=== PATIENT | male | born 1995 | race Caucasian/White ===

== ENCOUNTER 2017-10-06 10:58 | Emergency (ER) | payer SELFPAY ==
--- NOTE | 2017-10-06 11:15 | ED.PDOC ---
History of Present Illness - General Chief Complaint: Eye Problems Stated Complaint: left eye swelling Time Seen by Provider: 10/06/17 11:14 Source: patient Exam Limitations: no limitations - History of Present Illness Initial Comments: August Resendez 22 y/o male seen in ER with left lower lid swelling for 24 hours no history of trauma to eye,denies foreign body sensation no contact lenses,has nasal drainage. Timing/Duration: yesterday EENT Location: eye (L) Prearrival Treatment: no prearrival treatment Worsening Factors: nothing Associated Symptoms: denies symptoms Allergies/Adverse Reactions: Allergies NO KNOWN ALLERGY Allergy (Verified 10/06/17 11:17) Home Medications: Ambulatory Orders Cephalexin 1,000 mg PO BID #30 cap 10/06/17 Review of Systems - Review of Systems Constitutional: States: no symptoms reported EENTM: States: see HPI Respiratory: States: no symptoms reported Cardiology: States: no symptoms reported Gastrointestinal/Abdominal: States: no symptoms reported Musculoskeletal: States: no symptoms reported All other Systems: Reviewed and Negative, No Change from Baseline Past Medical History (General) - Patient Medical History Surgical History: no surgical history Family Medical History - Family History Mother Family History: Unknown Hx Family Hypertension: Yes - multiple family memebers Physical Exam - Physical Exam General Appearance: Alert, Comfortable, No apparent distress Eye Exam: right other - lower lid swelling, bilateral normal Ear Exam: bilateral ear: auricle normal, canal normal, TM normal Nasal Exam: other - nasal congestion Throat Exam: normal mouth inspection, pharynx normal Neck: non-tender, full range of motion Cardiovascular/Respiratory: regular rate, rhythm, normal peripheral pulses Abdominal Exam: non-tender Neurologic: alert, oriented x 3 Skin Exam: normal color, warm/dry Progress - Progress Progress: 10/06/17 11:59 Last Vital Signs Temp 97.9 F 10/06/17 11:08 Pulse 82 10/06/17 11:08 Resp 20 10/06/17 11:08 BP 144/85 10/06/17 11:08 Pulse Ox 96 10/06/17 11:08 Departure - Departure Clinical Impression: Nasal congestion with rhinorrhea Blepharitis of left upper eyelid Qualifiers: Blepharitis type: unspecified type Qualified Code(s): H01.004 - Unspecified blepharitis left upper eyelid Time of Disposition: 12:00 Disposition: Discharge to Home or Self Care Condition: Good Departure Forms: ED Discharge - Pt. Copy, Patient Portal Self Enrollment Instructions: DI for Blepharitis, Blepharitis Prescriptions: Cephalexin 1,000 mg PO BID #30 cap Home Medications: Ambulatory Orders Cephalexin 1,000 mg PO BID #30 cap 10/06/17 Additional Instructions: May use alternate warm and cold compress to left eye for 5 minutes 3 x a day during waking hours only until better;Wash affected area with BABY soap or BABY shampoo am /pm until better ;Continue with gentamicin eye solution 4 x a day for 7 days;Return to emergency room as needed
[2017-10-06] MEDS ORDERED: LACTATED RINGERS 1,000 ML IVS ONE (11:16)
[2017-10-06 11:17] VITALS: TEMP 97.9; O2SAT 96
[2017-10-06 12:16] VITALS: BP 130/73
[2017-10-06] MEDS ORDERED: GENTAMICIN 0.3% OPHTH SOL 1 DROP LEFT_EYE SCH (13:00)
== END 2017-10-06 12:16 | disposition home or self-care (01) ==
LOC: ER 10:58
DX: H01.004 Unspecified blepharitis left upper eyelid (principal)

== ENCOUNTER 2018-06-06 07:39 | Emergency (ER) | payer SELFPAY ==
[2018-06-06 07:55] VITALS: TEMP 96.9
[2018-06-06] MEDS ORDERED: SODIUM CHLORIDE 0.9% (FLUSH) 10 ML SYG IV PRN (08:02)
--- NOTE | 2018-06-06 08:17 | ED.PDOC ---
History of Present Illness - General Chief Complaint: General Stated Complaint: left sided chest pain Time Seen by Provider: 06/06/18 08:01 Source: patient Exam Limitations: no limitations - History of Present Illness Initial Comments: 1 1/2 WEEKS L-SIDED CP. PINPOINT LOCATION, JUST TO L OF STERNUM AT JOINT CONNECTING STERNUM TO RIB (COSTOCHONDRITIS). CONSTANT. AGGRAVATED BY DEEP BREATH. ALLEV BY NOTHING. SHARP. SMOKE 1 PPD. Timing/Duration: 1 week, constant Severity: moderate Improving Factors: nothing Worsening Factors: movement Associated Symptoms: chest pain Allergies/Adverse Reactions: Allergies NO KNOWN ALLERGY Allergy (Verified 10/06/17 11:17) Home Medications: Ambulatory Orders Methylprednisolone [Medrol Dose Jack] 4 mg PO DAILY #1 tab 06/06/18 Review of Systems - Review of Systems Constitutional: States: no symptoms reported EENTM: States: no symptoms reported Respiratory: Denies: short of breath, wheezing Cardiology: States: chest pain. Denies: palpitations Gastrointestinal/Abdominal: States: no symptoms reported Genitourinary: States: no symptoms reported Musculoskeletal: States: no symptoms reported Skin: States: no symptoms reported Neurological: States: no symptoms reported Endocrine: States: no symptoms reported Hematologic/Lymphatic: States: no symptoms reported All other Systems: Reviewed and Negative Past Medical History (General) - Patient Medical History Hx Stroke: No Hx Asthma: No Hx Congestive Heart Failure: No Hx Hypertension: No Hx Diabetes: No Hx MRSA: No Surgical History: no surgical history - Vaccination History Hx Tetanus, Diphtheria Vaccination: Yes Hx Influenza Vaccination: No Hx Pneumococcal Vaccination: No - Social History Hx Tobacco Use: Yes Hx Chewing Tobacco Use: No Hx Alcohol Use: No Hx Substance Use: No Hx Substance Use Treatment: No Hx Depression: No Family Medical History - Family History Mother Family History: Unknown Hx Family Hypertension: Yes - multiple family memebers Physical Exam - Physical Exam General Appearance: Alert, Well Nourished Eye Exam: bilateral normal Ears, Nose, Throat: hearing grossly normal, normal ENT inspection Neck: non-tender, other - NO BRUIT. NO JVD. Respiratory: chest non-tender, lungs clear, normal breath sounds, no respiratory distress, no accessory muscle use Cardiovascular/Chest: normal peripheral pulses, regular rate, rhythm, no edema, no gallop, no JVD, no murmur Peripheral Pulses: radial,right: 2+, radial,left: 2+ Gastrointestinal/Abdominal: normal bowel sounds, non tender, soft Back Exam: normal inspection, no CVA tenderness Extremity: normal range of motion, normal inspection Neurologic: legal aid II-XII nml as tested, no motor/sensory deficits, alert Skin Exam: normal color, warm/dry Lymphatic: no adenopathy Progress - Results/Orders Results/Orders: COAGS NEG. CARDIAC ENZ NEG. ONLY 1 SET NEEDED SINCE 1 1/2 WKS C.P. CXR NEG EKG NSR. CBC - WBC BARELY ELEV AT 11.2. BMP - BUN 21, MILDLY DEHYDRATED. PAIN LOCATED AT JXN OF STERNUM AND RIB, C/W COSTOCHONDRITIS. TX W/ ANTI- INFLAMMATORIES. TOB USE DISORDER - I RECOMMENDED CESSATION AND EXPLAINED THE DAMAGE SMOKING CAUSES. Departure - Departure Clinical Impression: Costochondral chest pain, Tobacco use disorder Disposition: Discharge to Home or Self Care Condition: Good Departure Forms: ED Discharge - Pt. Copy, Patient Portal Self Enrollment Instructions: Costochondritis Diet: resume usual diet Activity: increase activity as tolerated Prescriptions: Methylprednisolone [Medrol Dose Jack] 4 mg PO DAILY #1 tab Home Medications: Ambulatory Orders Methylprednisolone [Medrol Dose Jack] 4 mg PO DAILY #1 tab 06/06/18 Additional Instructions: Please try to decrease smoking because it irritates the lungs and leads to bronchitis, COPD, and lung cancer. Please establish care with a local family doctor for follow-up.
--- NOTE | 2018-06-06 08:33 | RAD ---
EXAM DESCRIPTION: Chest,1 View CLINICAL HISTORY: 23 years Male, CHEST PAIN COMPARISON: None. TECHNIQUE: AP portable chest. FINDINGS: Lungs are clear. No consolidation. Heart normal size. IMPRESSION: Normal. Electronically signed by: Ayan Cline MD 06/06/2018 8:31 AM CDT
[2018-06-06] MEDS ORDERED: methylPREDNISolone SODIUM SUC 125 MG/2 ML VIAL IV ONE (08:38)
[2018-06-06] MEDS ORDERED: KETOROLAC TROMETHAMINE INJ 30 MG/ML VIAL IV ONE (08:39)
[2018-06-06 09:02] VITALS: BP 134/79; O2SAT 99
== END 2018-06-06 09:02 | disposition home or self-care (01) ==
LOC: ER 07:39
DX: M94.0 Chondrocostal junction syndrome [Tietze] (principal); F17.210 Nicotine dependence, cigarettes, uncomplicated
CPT/HCPCS: 36415; 71045; 80048; 82550; 82553; 84484; 85025; 85610; 85730; 93005; J1885; J2930

== ENCOUNTER 2018-12-06 02:10 | Emergency (ER) | payer SELFPAY ==
[2018-12-06 02:26] VITALS: O2SAT 97
[2018-12-06] MEDS ORDERED: IBUPROFEN 200 MG TAB PO ONE (02:34)
[2018-12-06] MEDS ORDERED: BENZONATATE PERLES 100 MG CAP PO ONE (02:34)
[2018-12-06] MEDS ORDERED: OXYMETAZOLINE NASAL SPRAY 15 ML BTTL BNAS PRN (02:35)
--- NOTE | 2018-12-06 02:39 | ED.PDOC ---
History of Present Illness - General Chief Complaint: Respiratory Problem Stated Complaint: cough congestion Time Seen by Provider: 12/06/18 02:23 Source: patient Exam Limitations: no limitations - History of Present Illness Comments: Chris Resendez 23 y/o male came to ER with flu like symptoms since Tuesday-dry cough ,nasal congestion,body aches and fever.no chronic medical problems.Has several family members with same symptoms. Timing/Duration: other - 3 days Cough Quality/Degree: dry cough Possible Cause: no prior episodes Improving Factors: nothing Worsening Factors: nothing Associated Symptoms: muscle aches, nasal congestion, nasal drainage Allergies/Adverse Reactions: Allergies NO KNOWN ALLERGY Allergy (Verified 10/06/17 11:17) Home Medications: Ambulatory Orders Oseltamivir Capsule [Tamiflu] 75 mg PO BID 5 Days #10 capsule 12/06/18 Review of Systems - Review of Systems Constitutional: States: fever EENTM: States: see HPI, nose congestion Respiratory: States: see HPI, cough Cardiology: States: no symptoms reported Gastrointestinal/Abdominal: States: no symptoms reported Genitourinary: States: no symptoms reported Musculoskeletal: States: no symptoms reported Skin: States: no symptoms reported All other Systems: Reviewed and Negative, No Change from Baseline Past Medical History (General) - Patient Medical History Hx Stroke: No Hx Asthma: No Hx Congestive Heart Failure: No Hx Hypertension: No Hx Diabetes: No Hx MRSA: No Surgical History: no surgical history - Vaccination History Hx Tetanus, Diphtheria Vaccination: Yes Hx Influenza Vaccination: No Hx Pneumococcal Vaccination: No - Social History Hx Tobacco Use: Yes Hx Chewing Tobacco Use: No Hx Alcohol Use: No Hx Substance Use: No Hx Substance Use Treatment: No Hx Depression: No Hx Physical Abuse: No Hx Emotional Abuse: No Family Medical History - Family History Mother Family History: Unknown Hx Family Hypertension: Yes - multiple family memebers Physical Exam - Physical Exam General Appearance: Alert, Comfortable Eye Exam: bilateral normal ENT Exam: nasal congestion, pharyngeal erythema Neck: non-tender, full range of motion, supple, normal inspection, trachea midline Respiratory: chest non-tender, lungs clear, normal breath sounds, no respiratory distress Cardiovascular/Chest: normal peripheral pulses, regular rate, rhythm, no murmur Gastrointestinal/Abdominal: soft, no organomegaly Extremity: no pedal edema, no calf tenderness Neurologic: alert, oriented x 3 Skin Exam: normal color, warm/dry Progress - Progress Progress: 12/06/18 02:40 Vital Signs - 8 hr 12/06/18 02:24 Temperature 100.2 F H Pulse Rate [ 96 H Right] Respiratory 18 Rate Blood Pressure 144/82 [Left Arm] O2 Sat by Pulse 97 Oximetry - Results/Orders Results/Orders: Flu A positive Departure - Departure Clinical Impression: Influenza A with respiratory manifestations Time of Disposition: 03:06 Disposition: Discharge to Home or Self Care Condition: Fair Departure Forms: ED Discharge - Pt. Copy, Patient Portal Self Enrollment Instructions: Flu, Adult (DC), Flu, How to Do a Nasal Rinse, Sodium Chloride Prescriptions: Oseltamivir Capsule [Tamiflu] 75 mg PO BID 5 Days #10 capsule Home Medications: Ambulatory Orders Oseltamivir Capsule [Tamiflu] 75 mg PO BID 5 Days #10 capsule 12/06/18 Additional Instructions: May take over the counter medications: Cough /cold medication liquid see package instruction for dosage;Aleve 1-2 tabs am/pm for pain /fever;Nasal saline rinse use both nostrils as needed for nasal congestion;May also use afrin nose spray-2 sprays each nostril am/pm for nasal congestion 3 days on 3 days off;Return to ER as needed
[2018-12-06] MEDS ORDERED: OSELTAMIVIR 75 MG CAP PO ONE (03:00)
[2018-12-06 03:20] VITALS: BP 138/84; TEMP 100
== END 2018-12-06 03:20 | disposition home or self-care (01) ==
LOC: ER 02:10
DX: J10.1 Influenza due to other identified influenza virus with other respiratory manifestations (principal); Z87.891 Personal history of nicotine dependence

== ENCOUNTER 2019-05-01 22:53 | Emergency (ER) | payer SELFPAY ==
[2019-05-01 23:09] VITALS: BP 153/88; TEMP 98.4; O2SAT 97
[2019-05-01] MEDS ORDERED: OPHTHALMIC SALT SOLUTION 120 ML BTTL ONE (23:18)
[2019-05-01] MEDS ORDERED: TETRACAINE HCL 0.5% OPHTH SOL 1 DROP ONE (23:19)
--- NOTE | 2019-05-02 00:33 | ED.PDOC ---
History of Present Illness - General Chief Complaint: Eye Problems Stated Complaint: eye itching/pain Time Seen by Provider: 05/02/19 00:10 Source: patient Exam Limitations: no limitations - History of Present Illness Initial Comments: 3 D AGO PT NOTICED R EYE "BLOOD SHOT", LIGHT SENSITIVE. "GRITTY" SENSATION WHEN MOVES THE EYE. POS BURNING/IRRITATION. 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 WEARS 1 MONTH DURATION CONTACTS AND ONLY HAD THEM IN 3 WEEKS. HE REMOVED THEM 3 D AGO AND HAS NOT WORN SINCE. Timing/Duration: gradual Severity: moderate EENT Location: eye (R) Improving Factors: nothing Worsening Factors: other - PHOTOPHOBIA. Associated Symptoms: denies symptoms Allergies/Adverse Reactions: Allergies NO KNOWN ALLERGY Allergy (Verified 10/06/17 11:17) Home Medications: Ambulatory Orders Ciprofloxacin HCl (Ophth) [Ciprofloxacin HCl] 2 drop OPHTH Q2H 7 Days #1 shell 05/02/19 Review of Systems - Review of Systems Constitutional: States: no symptoms reported EENTM: States: eye pain, blurred vision, tearing. Denies: ear discharge, nose congestion Respiratory: States: no symptoms reported Cardiology: States: no symptoms reported Gastrointestinal/Abdominal: States: no symptoms reported Genitourinary: States: no symptoms reported Musculoskeletal: States: no symptoms reported Skin: States: no symptoms reported Neurological: States: no symptoms reported Endocrine: States: no symptoms reported Hematologic/Lymphatic: States: no symptoms reported All other Systems: Reviewed and Negative Past Medical History (General) - Patient Medical History Hx Stroke: No Hx Asthma: No Hx Congestive Heart Failure: No Hx Hypertension: No Hx Diabetes: No Hx MRSA: No Surgical History: no surgical history - Vaccination History Hx Tetanus, Diphtheria Vaccination: No Hx Influenza Vaccination: No Hx Pneumococcal Vaccination: No - Social History Hx Tobacco Use: Yes Hx Chewing Tobacco Use: No Hx Alcohol Use: No Hx Substance Use: No Hx Substance Use Treatment: No Hx Depression: No Hx Physical Abuse: No Hx Emotional Abuse: No - Triage Comment ED Triage Comment: Eyes matting, red and painful since Tuesday Family Medical History - Family History Mother Family History: Unknown Hx Family Hypertension: Yes - multiple family memebers Physical Exam - Physical Exam General Appearance: Alert, Well Hydrated Eye Exam: right other - EOMI. PERRLA. FUNDUS NL. NO FOREIGN BODY. MOHR LAMP/FLUORESCEIN EXAM SHOWS PINPOINT OVAL ABRASION OF INFERIOR IRIS. NO RUST RING. , left normal Ear Exam: bilateral ear: TM normal Nasal Exam: normal inspection Throat Exam: normal mouth inspection, pharynx normal Neck: full range of motion, normal inspection Skin Exam: normal color Progress - Progress Progress: 05/02/19 00:45 CORNEAL ABRASION OF INFERIOR IRIS OF R EYE (INFERIOR TO PUPIL). NO RUST RING. NO RETAINED FOREIGN BODY. NO INTRA-GLOBAL PATHOLOGY PER FUNDAL EXAM. F/U WITH BUSINESS LINE MANAGER OR LACEWORKER TOMORROW. Departure - Departure Clinical Impression: Acute eye pain Corneal abrasion Qualifiers: Encounter type: initial encounter Laterality: right Qualified Code(s): S05.01XA - Injury of conjunctiva and corneal abrasion without foreign body, right eye, initial encounter Disposition: Discharge to Home or Self Care Condition: Good Departure Forms: ED Discharge - Pt. Copy, Patient Portal Self Enrollment Instructions: Corneal Abrasion (DC) Diet: resume usual diet Activity: increase activity as tolerated Prescriptions: Ciprofloxacin HCl (Ophth) [Ciprofloxacin HCl] 2 drop OPHTH Q2H 7 Days #1 shell Home Medications: Ambulatory Orders Ciprofloxacin HCl (Ophth) [Ciprofloxacin HCl] 2 drop OPHTH Q2H 7 Days #1 shell 05/02/19 Additional Instructions: Please follow-up with your syrup maker tomorrow to further examine with his specialized eye equipment, to ensure there are no additional concerns which our ER equipment does not assess. Please continue the Cipro eye drops, as instructed.
[2019-05-02] MEDS ORDERED: CIPROFLOXACIN 0.3% OPHTH SOL 1 DROP ONE (00:41)
[2019-05-02] MEDS ORDERED: CIPROFLOXACIN 0.3% OPHTH SOL 1 DROP RIGHT_EYE ONE (00:48)
== END 2019-05-02 00:54 | disposition home or self-care (01) ==
LOC: ER 22:53
DX: S05.01XA Injury of conjunctiva and corneal abrasion without foreign body, right eye, initial encounter (principal); Z87.891 Personal history of nicotine dependence; X58.XXXA Exposure to other specified factors, initial encounter; Y92.9 Unspecified place or not applicable